=== PATIENT | female | born 1965 | race American Indian/Alaskan Native ===

== ENCOUNTER 2021-04-28 09:16 | Emergency (ER) | payer BC ==
[2021-04-28] MEDS ORDERED: LIDOCAINE (1%) 10 MG/1 ML VIAL 20 ML MDV INFILTRATI ONE (10:27)
--- NOTE | 2021-04-28 10:33 | Emergency Department Report ---
ED General Adult HPI - General Chief complaint: Skin/Abscess/Foreign Body Stated complaint: BOIL ON BOTTOM Time Seen by Provider: 04/28/21 10:02 Source: patient Mode of arrival: Ambulatory Limitations: No Limitations - History of Present Illness Initial comments: 55-year-old -Al[place] female patient with history of diabetes presents with complaints of abscess above the buttocks x5 days. She denies history of pilonidal abscesses. She also denies any fever/chills/sweats. She rates her pain as a 9/10 in severity and describes it as constant and throbbing. -: Gradual - Related Data Previous Rx's Medication Instructions Recorded Last Taken Type HYDROcodone/APAP 5-325 [[place] 1 each PO Q6HR PRN #10 tablet 11/08/18 Unknown Rx 5/325] Acetaminophen/Codeine [Tylenol 1 tab PO Q8H PRN #6 tab 04/28/21 Unknown Rx /Codeine # 3 tab] Clindamycin [Clindamycin CAP] 300 mg PO Q6H 10 Days #40 capsule 04/28/21 Unknown Rx Ibuprofen [Motrin 600 MG tab] 600 mg PO Q8H PRN #20 tablet 04/28/21 Unknown Rx Mupirocin [Bactroban 2% OINT] 1 applic TP TID 10 Days #1 tube 04/28/21 Unknown Rx Allergies Allergy/AdvReac Type Severity Reaction Status Date / Time SEAFOOD Allergy Vomiting Uncoded 04/28/21 09:18 ED Review of Systems ROS: Stated complaint: BOIL ON BOTTOM Other details as noted in HPI Constitutional: denies: chills, fever, malaise Gastrointestinal: denies: diarrhea, constipation Skin: change in color. denies: pruritus ED Past Medical Hx - Past Medical History Hx Hypertension: Yes Hx Diabetes: Yes Hx Arthritis: Yes - Surgical History Additional Surgical History: NONE - Social History Smoking Status: Current Every Day Smoker Substance Use Type: None - Medications Home Medications: Home Medications Medication Instructions Recorded Confirmed Last Taken Type HYDROcodone/APAP 5-325 [[place] 1 each PO Q6HR PRN #10 tablet 11/08/18 Unknown Rx 5/325] Acetaminophen/Codeine [Tylenol 1 tab PO Q8H PRN #6 tab 04/28/21 Unknown Rx /Codeine # 3 tab] Clindamycin [Clindamycin CAP] 300 mg PO Q6H 10 Days #40 capsule 04/28/21 Unknown Rx Ibuprofen [Motrin 600 MG tab] 600 mg PO Q8H PRN #20 tablet 04/28/21 Unknown Rx Mupirocin [Bactroban 2% OINT] 1 applic TP TID 10 Days #1 tube 04/28/21 Unknown Rx ED Physical Exam - General Limitations: No Limitations General appearance: alert, in no apparent distress - Head Head exam: Present: atraumatic, normocephalic - Eye Eye exam: Present: normal appearance - Respiratory Respiratory exam: Present: normal lung sounds bilaterally. Absent: respiratory distress - Cardiovascular Cardiovascular Exam: Present: regular rate, normal rhythm - Rectal Rectal exam: Present: other (Abscess noted just above the the gluteal cleft with erythema and mild fluctuance and surrounding induration) - Neurological Exam Neurological exam: Present: alert, oriented X3 - Psychiatric Psychiatric exam: Present: normal affect, normal mood - Skin Skin exam: Present: warm, dry, intact. Absent: rash ED Course Vital Signs 04/28/21 09:20 Temperature 99.1 F Pulse Rate 111 H Respiratory 18 Rate Blood Pressure 147/85 O2 Sat by Pulse 100 Oximetry - I & D Buttocks Blade Size: 11 I & D Procedure: betadine prep, sterile drapes applied, sterile dressing applied, gauze wick placed Progress: 10 cc of lidocaine 1% used to anesthetize area. Moderate purulent drainage obtained from. Sample sent for wound culture. Minimal bleeding occurred. Patient tolerated procedure well without any immediate complications ED Medical Decision Making - Medical Decision Making 55-year-old -Al[place]ian female patient with history of diabetes presents with complaints of abscess above the buttocks x5 days. She denies history of pilonidal abscesses. She also denies any fever/chills/sweats. She rates her pain as a 9/10 in severity and describes it as constant and throbbing. Incision and drainage performed. Will discharge patient home on clindamycin and mupirocin. Discussed wound care and strict return precautions in detail patient verbalized understanding. She is to return to the ED in 2 days or follow-up with her primary care doctor for wound recheck. Critical care attestation.: If time is entered above; I have spent that time in minutes in the direct care of this critically ill patient, excluding procedure time. ED Disposition Clinical Impression: Abscess, gluteal cleft Disposition: DC-01 TO HOME OR SELFCARE Is pt being admited?: No Condition: Stable Instructions: Skin Abscess, Incision and Drainage, Care After Prescriptions: Mupirocin [Bactroban 2% OINT] 1 applic TP TID 10 Days #1 tube Clindamycin [Clindamycin CAP] 300 mg PO Q6H 10 Days #40 capsule Ibuprofen [Motrin 600 MG tab] 600 mg PO Q8H PRN #20 tablet PRN Reason: Pain Acetaminophen/Codeine [Tylenol /Codeine # 3 tab] 1 tab PO Q8H PRN #6 tab PRN Reason: Pain , Severe (7-10) Referrals: [facility] [Provider Group] - 3-5 Days Forms: Work/School Release Form(ED) Time of Disposition: 11:18
[2021-04-28 11:32] VITALS: BP 129/81
== END 2021-04-28 11:33 | disposition home or self-care (01) ==
LOC: ED 09:16
DX: L02.31 Cutaneous abscess of buttock (principal); E11.9 Type 2 diabetes mellitus without complications; M19.90 Unspecified osteoarthritis, unspecified site; F17.200 Nicotine dependence, unspecified, uncomplicated; Z79.899 Other long term (current) drug therapy; Z91.013 Allergy to seafood
CPT/HCPCS: 87076; 87116; 87186; 99283